=== PATIENT | female | born 1970 | race African-American/Black ===

== ENCOUNTER 2018-05-22 10:42 | Inpatient (IN) | payer BC, OTHER ==
[2018-05-21 08:14] VITALS: BMI 46.0
[~2018-05-22 10:42] MED LIST: BUPIVACAINE HCL/PF (5 MG/ML) 30 ML VIAL IJ ONE
[2018-05-22] MEDS ORDERED: BUPIVACAINE HCL/PF 0.5% (5MG/ML) 10 ML VIAL ONE (13:03)
[2018-05-22] MEDS ORDERED: MIDAZOLAM HCL 2 MG/2 ML SINGLE DOSE VIAL ONE (13:14)
[2018-05-22] MEDS ORDERED: DEXAMETHASONE SOD PHOSPHATE 4 MG/1 ML VIAL ONE ×2 (13:46→15:20)
[2018-05-22] MEDS ORDERED: LIDOCAINE HCL/PF 2% SDV 5ML VIAL ONE (13:46)
[2018-05-22] MEDS ORDERED: fentaNYL CITRATE 250 MCG/5 ML VIAL ONE (13:48)
[2018-05-22] MEDS ORDERED: PROPOFOL 20 ML ONE ×2 (13:49)
[2018-05-22] MEDS ORDERED: ROCURONIUM BROMIDE 50 MG/5 ML VIAL ONE ×2 (13:50)
[2018-05-22] MEDS ORDERED: SODIUM CHLORIDE 0.9% P/F 10 ML VIAL IJ ONE (13:51)
[2018-05-22] MEDS ORDERED: ceFAZolin SODIUM 1 GM VIAL ONE (13:51)
[2018-05-22] MEDS ORDERED: ceFAZolin SODIUM 1 GM VIAL IVPB ONE (13:55)
[2018-05-22] MEDS ORDERED: NEOSTIGMINE METHYLSULFATE 0.5 MG/ML - 10 ML MDV ONE (15:24)
[2018-05-22] MEDS ORDERED: GLYCOPYRROLATE 0.2 MG/1 ML VIAL ONE (15:25)
[2018-05-22] MEDS ORDERED: ONDANSETRON 4 MG/2 ML VIAL IVPUSH PRN (15:29)
[2018-05-22] MEDS ORDERED: SODIUM CHLORIDE 1,000 ML IV SCH (15:30)
[2018-05-22] MEDS ORDERED: morphine SULFATE 4 MG/ML VIAL IVPUSH PRN (15:31)
--- NOTE | 2018-05-22 15:45 | SURG ---
Surgery Channel Opener Outsoles Note Channel Opener Outsoles: Jose Holcomb PA-C Date of Service: 05/22/18 Diagnosis: Morbid obesity due to excess calories Procedure: Laproscopic vertical sleeve gastrectomy I was present for the entirety of the operative procedure. For further detail, please refer to operative report.
--- NOTE | 2018-05-22 15:46 | OP ---
Operative Note - Note: Operative Date: 05/22/18 Pre-Operative Diagnosis: Morbid Obesity Operation: Laparoscopic Vertical Sleeve Gastrectomy. Diagnostic Laparoscopy Findings: Greater curve sleeve gastrectomy performed with #[address] Post-Operative Diagnosis: Same as Pre-op Surgeon: Ander Goldstein [employer] Risk Intern: Jose Holcomb Anesthesia: General Specimens Removed: greater curve of stomach Estimated Blood Loss (mls): 20 Operative Report Dictated: Yes
[2018-05-22] MEDS ORDERED: MORPHINE SULFATE 2 MG/ML VIAL IVPUSH PRN (16:20)
[2018-05-22 16:29] LABS: HEMATOCRIT 41.2 % (32.4-45.2); HEMOGLOBIN 14.1 GM/dL (10.7-15.3); MCH 30.5 pg (25.7-33.7); MCHC 34.2 g/dl (32.0-36.0); MEAN CELL VOLUME 89.2 fl (80-96); MEAN PLT VOLUME 8.1 fl (7.5-11.1); PLATELET COUNT 259 K/MM3 (134-434); RBC 4.61 M/mm3 (3.60-5.2); RDW 14.4 % (11.6-15.6); WHITE BLOOD COUNT 10.4 K/mm3 (4.0-10.0)
[2018-05-22] MEDS: METOCLOPRAMIDE HCL INJECTION 10 MG/2 ML VIAL IVPUSH SCH ×2 (16:30→20:08)
[2018-05-22 16:52] LABS: ALBUMIN 3.5 g/dl (3.4-5.0); ANION GAP 8 MMOL/L (8-16); BILIRUBIN,TOTAL 0.3 mg/dL (0.2-1.0); BLOOD UREA NITROGEN 13 mg/dL (7-18); CALCIUM 8.5 mg/dL (8.5-10.1); CHLORIDE 106 mmol/L (98-107); CO2 26 mmol/L (21-32); CREATININE 0.9 mg/dL (0.55-1.02); GLUCOSE,RANDOM 129 mg/dL (74-106); POTASSIUM 4.5 mmol/L (3.5-5.1); SGOT/AST 29 U/L (15-37); SGPT/ALT 40 U/L (12-78); SODIUM 140 mmol/L (136-145); TOT PROT 7.2 g/dl (6.4-8.2)
[2018-05-22 16:53] LABS: ALK PHOS 65 U/L (45-117)
[2018-05-22] MEDS ORDERED: PROMETHAZINE HCL 25 MG/1 ML VIAL ONE (16:55)
[2018-05-22] MEDS ORDERED: PROMETHAZINE HCL 25 MG/1 ML VIAL IVPUSH PRN (17:01)
[2018-05-22] MEDS: FAMOTIDINE 20 MG/50 ML IVPB 20 MG/50 ML MG IVPB SCH (21:36)
[2018-05-22] MEDS: ENOXAPARIN NA (PORCINE) 40 MG/0.4 ML DISP.SYRIN SQ SCH (21:36)
[2018-05-23] MEDS: METOCLOPRAMIDE HCL INJECTION 10 MG/2 ML VIAL IVPUSH SCH ×3 (03:05→15:48)
--- NOTE | 2018-05-23 06:26 | OP ---
DATE OF OPERATION: 05/22/2018 PREOPERATIVE DIAGNOSIS: Morbid obesity. POSTOPERATIVE DIAGNOSIS: Morbid obesity. PROCEDURE PERFORMED: 1. Laparoscopic vertical sleeve gastrectomy. 2. Diagnostic laparoscopy. OPERATING SURGEON: Ander Goldstein MD PROGRAMMING INTERN: Jose Holcomb PA-C ANESTHESIA: General. OPERATIVE PROCEDURE: The patient was brought into the operating room, placed on the OR table in the supine position. All precautions were taken initially including padding for the back and the feet and Venodyne boots were placed on both lower extremities. At that point the abdomen was prepped and draped in the usual manner. A Veress needle was placed in the left upper quadrant and a pneumoperitoneum was established. A No. 12 bladeless trocar was placed in the left upper quadrant. Through that trocar a laparoscopic camera was placed. Under direct vision a No. 15 bladeless trocar was placed in the midline in the supraumbilical position followed by a No. 5 bladeless trocar in the right upper quadrant, a No. 5 bladeless trocar below the left costal margin. A Jermaine liver retractor was then placed in the epigastrium to retract the left lobe of the liver. The patient was then placed in a 20-degree reverse Trendelenburg position by Anesthesia. The pylorus was noted on the distal stomach and from there 6 cm was measured proximally. Here the operating surgeon lifted the stomach toward the anterior abdominal wall and the planning assistant surgeon retracted the gastrocolic ligament inferiorly. The LigaSure device was used to dissect the gastrocolic ligament off the greater curve of the stomach. This continued in a superior vertical direction until the final short gastric vessel between the superior pole of the spleen and proximal fundus was divided. At this juncture Anesthesia advanced a No. 36 bougie. With the bougie held along the lesser curvature a series of deja were performed the first 2 being black-load deja 6 cm in length along the bougie. This was followed by a series of purple-load deja also 6 cm in length along the bougie until the final staple was fired in the left upper quadrant and the greater curve was now completely detached from the lesser curve. It should be noted that prior to firing each staple both the anterior and posterior bertrand were checked that they were equal and in the area of the esophagogastric junction approximately 1 to 1.5 cm of serosa remained on anterior and posterior surfaces. At this juncture saline was placed around the staple line and Anesthesia inflated the bougie up to 35 mm of pressure. This showed that there was flow all the way down to the pylorus, no obstruction and no leaks were noted. At this juncture the bougie was removed by Anesthesia after decompression of the stomach was achieved. The No. 15 trocar site was then closed with an Endo Close device to prevent internal hernia and to prevent bleeding. Under direct vision all trocars were removed and pneumoperitoneum was released. All trocar sites then received 0.25% Marcaine. The No. 15 was closed with 3-0 Vicryl on the subcutaneous tissue and then all trocars were closed with 4-0 Biosyn in subcuticular fashion. Dressings were applied. The patient awoke from anesthesia and transferred out of the operating room to the recovery room in stable condition. Expected blood loss was 20 mL. Martin [id number]
[2018-05-23 07:27] LABS: HEMATOCRIT 38.3 % (32.4-45.2); HEMOGLOBIN 12.7 GM/dL (10.7-15.3); MCH 29.7 pg (25.7-33.7); MCHC 33.2 g/dl (32.0-36.0); MEAN CELL VOLUME 89.4 fl (80-96); MEAN PLT VOLUME 8.3 fl (7.5-11.1); PLATELET COUNT 276 K/MM3 (134-434); RBC 4.29 M/mm3 (3.60-5.2); RDW 14.4 % (11.6-15.6); WHITE BLOOD COUNT 11.7 K/mm3 (4.0-10.0)
[2018-05-23 07:59] LABS: CHLORIDE 103 mmol/L (98-107); POTASSIUM 4.3 mmol/L (3.5-5.1); SODIUM 138 mmol/L (136-145)
[2018-05-23 08:08] LABS: ALBUMIN 3.1 g/dl (3.4-5.0); ALK PHOS 60 U/L (45-117); ANION GAP 9 MMOL/L (8-16); BILIRUBIN,TOTAL 0.4 mg/dL (0.2-1.0); BLOOD UREA NITROGEN 10 mg/dL (7-18); CO2 26 mmol/L (21-32); CREATININE 0.9 mg/dL (0.55-1.02); GLUCOSE,RANDOM 96 mg/dL (74-106); SGOT/AST 26 U/L (15-37); SGPT/ALT 39 U/L (12-78); TOT PROT 6.8 g/dl (6.4-8.2)
[2018-05-23] MEDS: ENOXAPARIN NA (PORCINE) 40 MG/0.4 ML DISP.SYRIN SQ SCH ×2 (09:20→22:02)
[2018-05-23] MEDS: FAMOTIDINE 20 MG/50 ML IVPB 20 MG/50 ML MG IVPB SCH ×2 (09:22→22:01)
[2018-05-23] MEDS ORDERED: oxyCODONE HCL 5 MG TABLET PO PRN (15:17)
[2018-05-23] MEDS ORDERED: ACETAMINOPHEN 325 MG TABLET (FP) PO PRN (15:17)
--- NOTE | 2018-05-23 15:17 | PN ---
Progress Note (short form) - Note Progress Note: POD#1 Afebrile; VSS Pt doing well Had N/V, now resolved P/E-Abd- all trocar sites clean,dry UGI-no leak, no obstruction WBC-11.7 H/H-12.7/38.3 P- PO clear liquids- 2 oz PO TID Water/ice chips- 1 cup Q2H Cont DVT prophylaxis Encourage Incentive Spirometer, Ambulation
[2018-05-23] MEDS ORDERED: SODIUM CHLORIDE 1,000 ML IV SCH (15:30)
[2018-05-23] MEDS ORDERED: ONDANSETRON 4 MG TABLET PO PRN (17:42)
[2018-05-23] MEDS ORDERED: METOCLOPRAMIDE HCL 10 MG TABLET (FP) PO PRN (17:43)
--- NOTE | 2018-05-23 19:12 | PN ---
Progress Note (short form) - Note Progress Note: POD #1 - s/p laparoscopic gastric sleeve under general anesthesia. VSS. Pt. doing well, sitting comfortably at side of bed. No complaints. No apparent anesthetic complications noted. Pt. to be discharged tomorrow.
[2018-05-24] MEDS ORDERED: SIMETHICONE 80 MG TAB.CHEW (FP) PO PRN (02:21)
[2018-05-24 10:00] VITALS: BP 135/73; PULSE 67; TEMP 97.9
[2018-05-24] MEDS ORDERED: RANITIDINE HCL 150 MG TABLET (FP) PO SCH (10:00)
[2018-05-24] MEDS: ENOXAPARIN NA (PORCINE) 40 MG/0.4 ML DISP.SYRIN SQ SCH (10:14)
--- NOTE | 2018-05-27 11:00 | PATH ---
Surgical Pathology Report Patient Name: GEOFF LEUNG Med. Rec. #: [id number] /Age/Gender: 1970 (Age: 47) / F Account: [id number] Location: 4 W TELEMETRY U Taken: 05/22/2018 Received: 05/26/2018 Reported: 05/27/2018 Physicians: Ander Goldstein M.D. Specimen(s) Received GREATER CURVATURE STOMACH Clinical History Morbid obesity Final Diagnosis STOMACH, GREATER CURVATURE, LAPAROSCOPIC VERTICAL SLEEVE GASTRECTOMY: PORTION OF STOMACH WITH MILD CHRONIC GASTRITIS. IMMUNOHISTOCHEMICAL STAIN FOR H. PYLORI IS NEGATIVE. Electronically Signed Yesenia Gaines M.D. Gross Description Received in formalin, labeled "greater curvature of stomach," is a 111 gram, 17.5 x 3.5 x 2.6 cm. portion of stomach with a stapled margin of resection. The serosa is [place]-don with minimal attached fat. The mucosa is [place]ledo-pink with normal folds. No mucosal masses are identified. Matching Machine Operator sections are submitted in one cassette. /05/26/2018 saudi05/26/2018
== END 2018-05-24 11:18 | disposition home or self-care (01) | DRG 621 ==
LOC: JSAMEDAYSX 10:42 → EDSTATUS 12:00 → J4W 17:53
PROVIDERS: ADMIT Surgery; ATTEND Surgery
PROC: 0DB64Z3 Excision of Stomach, Percutaneous Endoscopic Approach, Vertical (ICD-10-PCS; principal; 2018-05-22 12:00)
DX: E66.01 Morbid (severe) obesity due to excess calories (principal); Z68.42 Body mass index [BMI] 45.0-49.9, adult
CPT/HCPCS: 36415; 74241-TC-FY; 80053; 85027; 86850; 86900; 86901; 88307-TC; 94760; J7030